=== PATIENT | male | born 1960 | race Native Hawaiian/Other Pacific Islander ===

== ENCOUNTER 2019-07-23 15:25 | Outpatient (CLI) | payer BC | END 2019-07-23 23:34 | disposition home or self-care (01) | LOC: RAD 15:25 | DX: M79.671 Pain in right foot (principal) ==

== ENCOUNTER 2021-04-21 09:08 | Outpatient (CLI) | payer BC | END 2021-04-21 18:56 | disposition home or self-care (01) | LOC: US 09:08 | PROVIDERS: ATTEND Internal Medicine Gastroenterology | DX: R94.5 Abnormal results of liver function studies (principal); R76.0 Raised antibody titer | CPT/HCPCS: 36415; 80076; 81256; 86038 ==

== ENCOUNTER 2021-12-25 10:41 | Outpatient (CLI) | payer BC ==
[2021-12-25 11:14] LABS: PLATELET COUNT 161 K/uL (142-355)
[2021-12-25 11:45] LABS: POTASSIUM 4.3 mmol/L (3.6-5.2)
== END 2021-12-25 20:31 | disposition home or self-care (01) ==
LOC: LABW 10:41
PROVIDERS: ATTEND Internal Medicine Hematology & Oncology
DX: R79.89 Other specified abnormal findings of blood chemistry (principal); E83.19 Other disorders of iron metabolism
CPT/HCPCS: 36415; 80053; 82607; 82728; 82746; 83540; 83550; 85027

== ENCOUNTER 2022-02-16 15:41 | Outpatient (CLI) | payer BC ==
[2022-02-16 16:00] LABS: PLATELET COUNT 156 K/uL (142-355)
[2022-02-16 16:14] LABS: POTASSIUM 3.9 mmol/L (3.6-5.2)
== END 2022-02-16 19:03 | disposition home or self-care (01) ==
LOC: RAD 15:41
PROVIDERS: ATTEND Internal Medicine
DX: Z01.818 Encounter for other preprocedural examination (principal)
CPT/HCPCS: 36415; 80053; 85027; 85610

== ENCOUNTER 2023-04-01 10:43 | Emergency (ER) | payer BC ==
[~2023-04-01] VITALS: Ht 170.2 cm; Wt 72.6 kg
[2023-04-01 10:45] VITALS: BP 170/96; TEMP 97.7
[2023-04-01 11:22] LABS: PLATELET COUNT 198 K/uL (142-355)
[2023-04-01 11:35] LABS: POTASSIUM 3.8 mmol/L (3.6-5.2)
== END 2023-04-01 13:55 | disposition home or self-care (01) ==
LOC: ED 10:43
PROVIDERS: Internal Medicine Endocrinology, Diabetes & Metabolism
DX: R10.31 Right lower quadrant pain (principal); N20.0 Calculus of kidney
CPT/HCPCS: 80053; 81002; 83690; 85027; 99283; Q9963